=== PATIENT | male | born 1955 | race Caucasian/White ===

== ENCOUNTER 2021-10-15 09:10 | Outpatient (CLI) | payer BC ==
[2021-10-15 10:36] LABS: Estimated GFR-MDRD - POC Greater than 90
== END 2021-10-15 09:11 | disposition home or self-care (01) ==
LOC: CSHCT 09:10
PROVIDERS: ATTEND Urology
DX: C67.9 Malignant neoplasm of bladder, unspecified (principal); N20.0 Calculus of kidney; K57.90 Diverticulosis of intestine, part unspecified, without perforation or abscess without bleeding
CPT/HCPCS: 74178; 82565